=== PATIENT | female | born 2000 | race Hispanic/Latino ===

== ENCOUNTER 2021-11-19 00:31 | Emergency (ER) | payer OTHER ==
[~2021-11-19] VITALS: Ht 167.6 cm; Wt 47.6 kg
[2021-11-19] MEDS ORDERED: Morphine 4mg Syringe 4 MG/ML INJ IV ONE (00:45)
[2021-11-19] MEDS ORDERED: ONDANSETRON HCL INJ 2MG/ML 2ML 2 MG/ML VIAL IV STA (00:45)
[2021-11-19 01:18] LABS: BASOPHILS % 0.6 % (0.0-1.0); EOSINOPHILS # (AUTO) 0.1 (0.0-0.4); EOSINOPHILS % 1.3 % (0.0-6.0); HEMATOCRIT 34.6 % (34.2-44.1); HEMOGLOBIN 11.1 g/dL (12.0-16.0); LYMPHOCYTES # (AUTO) 2.3 (1.0-3.2); LYMPHOCYTES % 37.1 % (18.0-39.1); MEAN CORPUSCULAR HGB CONC 32.1 g/dL (31-35); MEAN CORPUSCULAR VOLUME 93.5 fL (81-99); MONOCYTES # (AUTO) 0.5 (0.2-0.8); MONOCYTES % 7.2 % (4.4-11.3); NEUTROPHILS # (AUTO) 3.3 (2.1-6.9); NEUTROPHILS % 53.6 % (38.7-80.0); PLATELET COUNT 193 x10e3/uL (140-360); RED CELL DISTRIBUTION WIDTH 12.8 % (11.7-14.4)
[2021-11-19 01:29] LABS: PROTHROMBIN TIME 14.1 seconds (11.9-14.5)
[2021-11-19 01:37] LABS: LIPASE 30 U/L (8-78)
[2021-11-19 01:44] LABS: ALBUMIN 3.6 g/dL (3.5-5.0); ALBUMIN/GLOBULIN RATIO 1.3 (0.8-2.0); ANION GAP 11.9 mmol/L (8-16); CALCIUM 8.2 mg/dL (8.4-10.2); CREATININE, SERUM 0.75 mg/dL (0.57-1.11); POTASSIUM 3.9 mmol/L (3.5-5.1)
[2021-11-19] MEDS ORDERED: IOPAMIDOL 370 MG/ML 100 ML INFUS..BTL INJ ONE (02:01)
[2021-11-19 03:01] LABS: CLARITY,URINE SL CLOUDY (CLEAR); COLOR,URINE YELLOW (YELLOW); KETONES,URINE 2+ (NEGATIVE); LEUKOCYTE ESTERASE ,URINE NEGATIVE (NEGATIVE); NITRITE,URINE NEGATIVE (NEGATIVE); PROTEIN,URINE DIPSTICK NEGATIVE (NEGATIVE); URINE UROBILINOGEN 0.2 mg/dL (0.2 - 1)
[2021-11-19 03:03] LABS: AMPHETAMINES SCREEN,URINE NEGATIVE (NEGATIVE); BENZODIAZEPINES SCREEN,URINE POSITIVE (NEGATIVE); PHENCYCLIDINE SCREEN,URINE NEGATIVE (NEGATIVE)
[2021-11-19 03:13] LABS: BACTERIA,URINE FEW /HPF; EPITHELIAL CELLS,URINE MANY /LPF; WBC,URINE (MAN) 0-5 /HPF (0-5)
[2021-11-19] MEDS ORDERED: ONDANSETRON ODT4 MG PO (03:56)
[2021-11-19] MEDS ORDERED: ULTRACET TABLE1 EACH PO (03:56)
[2021-11-19] MEDS ORDERED: DICYCLOMINE HCL20 MG PO (03:56)
[2021-11-19] MEDS ORDERED: PANTOPRAZOLE SO40 MG PO (03:59)
[2021-11-19 04:31] VITALS: BP 105/60
[2021-11-19] MEDS ORDERED: SODIUM CHLORIDE FLUSH 10 ML SYR IV PRN (06:00)
[2021-11-19] MEDS ORDERED: SODIUM CHLORIDE 0.9% 1000ML 1,000 ML IV SCH (06:00)
== END 2021-11-19 04:30 | disposition home or self-care (01) ==
LOC: ER 01:38
DX: R10.84 Generalized abdominal pain (principal); R11.0 Nausea
CPT/HCPCS: 36415; 71045; 74177; 80053; 80307; 81001; 83690; 84484; 84702; 85025; 85610; 93005; 94760; 99284; C9113; J2270; J2405; J7030; Q9967

== ENCOUNTER 2021-12-06 20:52 | Emergency (ER) | payer OTHER ==
[~2021-12-06] VITALS: Ht 167.6 cm; Wt 47.6 kg
[~2021-12-06 20:52] MED LIST: DICYCLOMINE HCL20 MG PO; ONDANSETRON ODT4 MG PO; PANTOPRAZOLE SO40 MG PO; ULTRACET TABLE1 EACH PO
[2021-12-06] MEDS ORDERED: SODIUM CHLORIDE 0.9% 1000ML 1,000 ML IV STA (21:01)
[2021-12-06] MEDS ORDERED: LORAZEPAM INJ 2 MG/ML VIAL ONE (21:13)
[2021-12-06] MEDS ORDERED: SODIUM CHLORIDE 0.9% 1000ML 1,000 ML ONE (21:13)
[2021-12-06] MEDS ORDERED: LORAZEPAM INJ 2 MG/ML VIAL IV ONE (21:15)
[2021-12-06 21:20] LABS: BASOPHILS # (AUTO) 0.1 (0.0-0.1); BASOPHILS % 0.7 % (0.0-1.0); EOSINOPHILS # (AUTO) 0.1 (0.0-0.4); EOSINOPHILS % 0.8 % (0.0-6.0); HEMATOCRIT 37.3 % (34.2-44.1); HEMOGLOBIN 12.1 g/dL (12.0-16.0); LYMPHOCYTES % 47.3 % (18.0-39.1); MEAN CORPUSCULAR HEMOGLOBIN 29.8 pg (28-32); MEAN CORPUSCULAR HGB CONC 32.4 g/dL (31-35); MEAN CORPUSCULAR VOLUME 91.9 fL (81-99); MONOCYTES # (AUTO) 0.5 (0.2-0.8); MONOCYTES % 5.7 % (4.4-11.3); NEUTROPHILS # (AUTO) 3.8 (2.1-6.9); NEUTROPHILS % 45.4 % (38.7-80.0); PLATELET COUNT 266 x10e3/uL (140-360); RED BLOOD COUNT 4.06 x10e6/uL (3.6-5.1); RED CELL DISTRIBUTION WIDTH 11.9 % (11.7-14.4)
[2021-12-06 21:34] LABS: ALANINE AMINOTRANSFERASE 11 IU/L (0-55); ALBUMIN 4.1 g/dL (3.5-5.0); ALBUMIN/GLOBULIN RATIO 1.3 (0.8-2.0); ALKALINE PHOSPHATASE 39 IU/L (40-150); ANION GAP 15.2 mmol/L (8-16); BLOOD UREA NITROGEN 18 mg/dL (7-26); BUN/CREATININE RATIO 21 (6-25); CALCIUM 9.1 mg/dL (8.4-10.2); CARBON DIOXIDE 22 mmol/L (22-29); CHLORIDE 105 mmol/L (98-107); CREATINE KINASE 80 IU/L (29-168); CREATININE, SERUM 0.86 mg/dL (0.57-1.11); GLUCOSE 89 mg/dL (74-118); POTASSIUM 3.2 mmol/L (3.5-5.1); SODIUM 139 mmol/L (136-145)
[2021-12-07] MEDS ORDERED: LORAZEPAM INJ 2 MG/ML VIAL IV ONE (06:45)
== END 2021-12-07 02:08 | disposition home or self-care (01) ==
LOC: ER 20:57
DX: F41.0 Panic disorder [episodic paroxysmal anxiety] (principal); F12.10 Cannabis abuse, uncomplicated
CPT/HCPCS: 36415; 80053; 82550; 82553; 84484; 84702; 85025; 99283; J2060; J7030

== ENCOUNTER 2021-12-08 12:45 | Emergency (ER) | payer OTHER ==
[~2021-12-08] VITALS: Ht 167.6 cm; Wt 47.6 kg
[2021-12-08 14:38] LABS: CLARITY,URINE CLEAR (CLEAR); COLOR,URINE YELLOW (YELLOW); LEUKOCYTE ESTERASE ,URINE TRACE (NEGATIVE)
[2021-12-08 14:39] LABS: KETONES,URINE 1+ (NEGATIVE); NITRITE,URINE NEGATIVE (NEGATIVE); PROTEIN,URINE DIPSTICK NEGATIVE (NEGATIVE); URINE UROBILINOGEN 0.2 mg/dL (0.2 - 1)
[2021-12-08 15:02] LABS: BACTERIA,URINE MODERATE /HPF; EPITHELIAL CELLS,URINE MODERATE /LPF; RBC,URINE 0-5 /HPF (0-5); WBC,URINE (MAN) 0-5 /HPF (0-5)
== END 2021-12-08 16:02 | disposition home or self-care (01) ==
LOC: ER 12:55
DX: R10.2 Pelvic and perineal pain (principal); N39.0 Urinary tract infection, site not specified
CPT/HCPCS: 81001; 81025; 99282

== ENCOUNTER 2021-12-10 16:20 | Emergency (ER) | payer OTHER ==
[~2021-12-10] VITALS: Ht 167.6 cm; Wt 47.6 kg
[2021-12-10] MEDS ORDERED: CEPHALEXIN500 MG PO (16:51)
== END 2021-12-10 17:11 | disposition home or self-care (01) ==
LOC: ER 16:53
DX: H53.8 Other visual disturbances (principal); T37.8X5A Adverse effect of other specified systemic anti-infectives and antiparasitics, initial encounter; N30.90 Cystitis, unspecified without hematuria
CPT/HCPCS: 99283

== ENCOUNTER 2021-12-12 07:04 | Emergency (ER) | payer OTHER ==
[~2021-12-12] VITALS: Ht 167.6 cm; Wt 47.6 kg
[~2021-12-12 07:04] MED LIST changes: +CEPHALEXIN500 MG PO
== END 2021-12-12 07:50 | disposition home or self-care (01) ==
LOC: ER 07:10
DX: M54.50 Low back pain, unspecified (principal); M25.511 Pain in right shoulder
CPT/HCPCS: 99282

== ENCOUNTER 2022-02-27 09:10 | Emergency (ER) | payer OTHER ==
[~2022-02-27] VITALS: Ht 167.6 cm; Wt 43.1 kg
[2022-02-27] MEDS ORDERED: ALPRAZOLAM 1 MG TAB PO ONE (09:30)
== END 2022-02-27 11:34 | disposition home or self-care (01) ==
LOC: ER 09:19
DX: R07.89 Other chest pain (principal); F41.9 Anxiety disorder, unspecified; R94.31 Abnormal electrocardiogram [ECG] [EKG]
CPT/HCPCS: 71046; 93005; 99283

== ENCOUNTER 2022-03-18 18:49 | Emergency (ER) | payer OTHER ==
[~2022-03-18] VITALS: Ht 167.6 cm; Wt 43.1 kg
[2022-03-18] MEDS ORDERED: KETOROLAC TROMETHAMINE 60 MG/2 ML VIAL IM ONE (19:15)
[2022-03-18] MEDS ORDERED: ONDANSETRON HCL 4 MG ORAL DISINTEGRATING TAB PO ONE (20:15)
[2022-03-18] MEDS ORDERED: ONDANSETRON HCL 4 MG ORAL DISINTEGRATING TAB ONE (20:16)
[2022-03-18] MEDS ORDERED: ONDANSETRON ODT4 MG PO (20:46)
[2022-03-18] MEDS ORDERED: CYCLOBENZAPRINE5 MG PO (20:46)
[2022-03-18] MEDS ORDERED: NAPROSYN500 MG PO (20:46)
== END 2022-03-18 20:50 | disposition home or self-care (01) ==
LOC: ER 19:31
DX: S00.83XA Contusion of other part of head, initial encounter (principal); S70.01XA Contusion of right hip, initial encounter; S39.012A Strain of muscle, fascia and tendon of lower back, initial encounter; W01.0XXA Fall on same level from slipping, tripping and stumbling without subsequent striking against object, initial encounter; Y93.01 Activity, walking, marching and hiking; Y99.0 Civilian activity done for income or pay; F41.9 Anxiety disorder, unspecified
CPT/HCPCS: 70450; 72100; 73502; 81025; 99284; J1885; Q0162

== ENCOUNTER 2024-02-04 09:02 | Emergency (ER) | payer SELFPAY ==
[~2024-02-04] VITALS: Ht 167.6 cm; Wt 48.1 kg
[~2024-02-04 09:02] MED LIST changes: +CYCLOBENZAPRINE5 MG PO; +NAPROSYN500 MG PO
[2024-02-04 09:09] VITALS: PULSE 87; RESP 15; TEMP 98.1; O2SAT 100
[2024-02-04] MEDS: KETOROLAC TROMETHAMINE 60 MG/2 ML VIAL IM ONE (09:19)
[2024-02-04] MEDS ORDERED: KETOROLAC TROMETHAMINE 60 MG/2 ML VIAL ONE (09:21)
== END 2024-02-04 09:35 | disposition home or self-care (01) ==
LOC: ER 09:09
DX: M25.562 Pain in left knee (principal); M25.561 Pain in right knee; M25.572 Pain in left ankle and joints of left foot; M25.571 Pain in right ankle and joints of right foot; F41.9 Anxiety disorder, unspecified; Y93.B9 Activity, other involving muscle strengthening exercises
CPT/HCPCS: 99282; J1885

== ENCOUNTER 2024-10-13 20:15 | Emergency (ER) | payer SELFPAY ==
[~2024-10-13] VITALS: Ht 162.6 cm; Wt 49.9 kg
[~2024-10-13 20:15] MED LIST changes: +AZITHROMYCIN250 MG PO; +PREDNISONE20 MG PO; +VENTOLIN HFA18 GM INH
[2024-10-13 20:35] VITALS: PULSE 90; RESP 18; TEMP 97.9
[2024-10-14 00:41] VITALS: BP 123/87; O2SAT 100
== END 2024-10-13 23:37 | disposition home or self-care (01) ==
LOC: ER 20:37
DX: R05.9 Cough, unspecified (principal); J30.2 Other seasonal allergic rhinitis; R09.89 Other specified symptoms and signs involving the circulatory and respiratory systems; F41.9 Anxiety disorder, unspecified
CPT/HCPCS: 71045; 99283

== ENCOUNTER 2024-10-25 07:05 | Emergency (ER) | payer SELFPAY ==
[~2024-10-25] VITALS: Ht 162.6 cm; Wt 49.9 kg
[2024-10-25 07:11] VITALS: PULSE 79; RESP 18; TEMP 98.6; O2SAT 100
[2024-10-25] MEDS ORDERED: [UNRECOGNIZED DRUG - OTHER] (07:32)
== END 2024-10-25 08:34 | disposition home or self-care (01) ==
LOC: ER 07:12
DX: J34.89 Other specified disorders of nose and nasal sinuses (principal); J01.90 Acute sinusitis, unspecified; E07.9 Disorder of thyroid, unspecified; F41.9 Anxiety disorder, unspecified
CPT/HCPCS: 99283